=== PATIENT | female | born 1970 | race Caucasian/White ===

== ENCOUNTER 2020-07-15 01:30 | Emergency (ER) | payer OTHER ==
[~2020-07-15] VITALS: Ht 157.5 cm; Wt 74.3 kg
--- NOTE | 2020-07-15 01:50 | NUR ---
PT REPORTS EXERCISE APPX X6 DAYS AGO PART OF REHAB FOR PULMONARY HYPERTENSION, WITH PAIN IN LEFT THIGH STARTING X3 DAYS AGO, REPORTS INCREASING PAIN AND DIFFICULTY SLEEPING. REPORTS PAIN MUSCULAR IN NATURE, NEURO INTACT, DENIES NUMBNESS/TINGLING. PT CONNECTED TO MONITORING, CALL LIGHT WITHIN REACH, ALL SAFETY MEASURES IN PLACE, FAMILY AT BS FOR SUPPORT.
[2020-07-15] MEDS ORDERED: HYDROcodone/APAP 5/325 TABLET ONE ×2 (01:53→03:55)
[2020-07-15] MEDS ORDERED: HYDROcodone/APAP 5/325 TABLET PO ONE ×2 (02:00→04:00)
--- NOTE | 2020-07-15 03:00 | NUR ---
PT UPDATED ON POC, MONITORING IN PLACE, CALL LIGHT WITHIN REACH. FAMILY AT BS FOR SUPPORT.
[2020-07-15 03:57] VITALS: BP 114/76
== END 2020-07-15 04:03 ==
LOC: ED 03:40
DX: M79.652 Pain in left thigh (principal); X58.XXXA Exposure to other specified factors, initial encounter; Y93.89 Activity, other specified; Y92.009 Unspecified place in unspecified non-institutional (private) residence as the place of occurrence of the external cause; Y99.8 Other external cause status
CPT/HCPCS: 99284